=== PATIENT | male | born 1995 | race Caucasian/White ===

== ENCOUNTER 2022-12-04 17:59 | Emergency (ER) | payer SELFPAY ==
[~2022-12-04] VITALS: Ht 188 cm; Wt 82.0 kg
[2022-12-04 18:20] VITALS: BP 141/65
[2022-12-04] MEDS ORDERED: ERY05OO OP (19:17)
== END 2022-12-04 19:40 | disposition home or self-care (01) ==
LOC: ER 17:59
DX: S05.02XA Injury of conjunctiva and corneal abrasion without foreign body, left eye, initial encounter (principal); W22.8XXA Striking against or struck by other objects, initial encounter; Y93.89 Activity, other specified; Y92.89 Other specified places as the place of occurrence of the external cause; Y99.8 Other external cause status